=== PATIENT | male | born 1975 | race Caucasian/White ===

== ENCOUNTER 2018-11-13 08:08 | Observation (INO) ==
--- NOTE | 2018-11-13 09:22 | ED ---
HPI General Chief Complaint: Respiratory Symptoms Stated Complaint: SOB/Resp complaint Time Seen by Provider: 11/13/18 09:10 Source: patient Mode of arrival: ambulatory Limitations: no limitations History of Present Illness HPI Narrative: 43-year-old male complains of cough and congestion shortness of breath and fever. Patient states that he started having productive cough with shortness of breath about 4 weeks ago. Patient states that the symptom got worse since then. Patient started having fever for the past 2 days. Patient states that he has intermittent nausea vomiting with a cough. Patient has history of asthma. Patient is a smoker. Patient states that he has recent sick contacts. Complaint: Reports fever and cough Onset (ago): week(s) Duration: intermittent Severity: moderate Relieving factors: nothing Exacerbating factors: nothing Description of mucous: Reports yellow Able to tolerate fluids by mouth: Yes Context: Reports sick contacts Associated symptoms: Reports fever, cough, nausea and vomiting Treatments prior to arrival: Reports none Related Data Previous Rx's Medication Instructions Recorded albuterol sulfate 1 inh INHALATION Q4-6H PRN #8 g 08/13/18 Allergies Allergy/AdvReac Type Severity Reaction Status Date / Time No Known Allergies Allergy Verified 11/13/18 08:33 Review of Systems ROS: all other systems reviewed are negative [facility] Medical History Medical History Asthma (Acute) Detached retina, left (Acute) Surgical History Surgical History No pertinent past surgical history (Acute) Social History Social History Substance History: Past History Second Hand Smoke Exposure: Yes Smoking Status: Current every day smoker Tobacco Type: Cigars How Often Do You Have a Drink Containing Alcohol: Monthly or less Recent Travel in [facility] within the Last 8 Weeks: No Recent Out of Country Travel within the Last 8 Weeks: No Immunization History Tetanus Immunization: Unsure Exam Narrative Exam Narrative: GENERAL: Well-nourished, well-developed patient. SKIN: Focused skin assessment warm/dry. HEAD: Normocephalic. EYES: No scleral icterus. No injection or drainage. NECK: Supple, trachea midline. No JVD or lymphadenopathy. CARDIOVASCULAR: Regular rate and rhythm without murmurs, gallops, or rubs. RESPIRATORY: Breath sounds equal bilaterally. No accessory muscle use. Patient has moderate expiratory wheezes bilaterally. No rhonchi. GASTROINTESTINAL: Abdomen soft, non-tender, nondistended. MUSCULOSKELETAL: No cyanosis, or edema. BACK: Nontender without obvious deformity. No CVA tenderness. Neurologic exam normal. Course Initial Documented Vital Signs Temperature 97.9 F 11/13/18 08:13 Pulse Rate 99 H 11/13/18 08:13 Respiratory Rate 18 11/13/18 08:13 Blood Pressure 148/71 H 11/13/18 08:13 Pulse Oximetry 90 L 11/13/18 08:13 Last Documented Vital Signs Temperature 97.9 F 11/13/18 08:13 Pulse Rate 90 11/13/18 10:46 Respiratory Rate 20 11/13/18 10:46 Blood Pressure 119/59 L 11/13/18 10:42 Pulse Oximetry 93 L 11/13/18 10:42 Medical Decision Making MDM Narrative Medical decision making narrative: 43-year-old male with coughing shortness of breath. History of asthma. Albuterol with Atrovent unit dose treatment x3. Decadron 8 mg IM. Rocephin 1 g IV. Zithromax 500 mg p.o. Medical Screen Exam Complete: Yes Emergency Medical Condition: Yes Differential Diagnosis Differential Diagnosis: Differential diagnosis including acute exacerbation of asthma, bronchitis, pneumonia. Imaging Data Attestation: I personally reviewed and interpreted this imaging study as follows : Radiologist's impression: Chest X-Ray 11/13/18 09:14 CONCLUSION: No acute cardiopulmonary disease. Discharge Plan Discharge Disposition Patient Disposition: ED Admit(ED Internal Use Only) Discharge Order Discharge Orders: ED Use Only Admit Order (Routine); Ordered 11/13/18 Ordered By: Suleiman Gold Discharge Details Diagnosis: Acute asthma exacerbation Physicians Team ED Provider: Suleiman Gold Primary Care Provider: Primary Care GilsoniGeorgette Rxs /Orders / Referrals /Forms Prescriptions: No Action albuterol sulfate 90 mcg/actuation HFA aerosol inhaler 1 inh INHALATION Q4-6H PRN (Reason: shortness of breath or wheezing) Qty: 8 RF: 0 Status ED Status: With Doctor
--- NOTE | 2018-11-13 09:45 | XR ---
EXAM DATE: 11/13/2018 9:42 AM EST AGE/SEX: 43 years / Male INDICATIONS: Short of breath. CLINICAL DATA: This is the patient's initial encounter. Patient reports that signs and symptoms have been present for 1 day and indicates a pain score of 0/10. MEDICAL/SURGICAL HISTORY: None. None. COMPARISON: [facility] [place]ST 2V PA&LAT, 08/13/2018. . FINDINGS: A single AP view of the chest demonstrates the lungs to be symmetrically aerated without evidence of mass, infiltrate or effusion. The cardiomediastinal contours are unremarkable. Osseous structures a re intact. There are multiple overlying electrocardiogram leads. There is a calcified left axillary l ymph node again noted. There is a small calcified granuloma again noted in the left upper lobe. CONCLUSION: No acute cardiopulmonary disease. Electronically signed by: Jeff Rogers MD Board Certified Radiologist 11/13/2018 9:44 AM EST
[2018-11-13] MEDS ORDERED: Azithromycin 250 MG Tablet PO ONE (10:30)
--- NOTE | 2018-11-13 10:59 | P.HPFP ---
History of Present Illness Primary Care Physician: No Primary Care Physician <Jasiel Churchill 11/15/18 10:15> No Primary Care Physician <Patt Quesada 11/13/18 10:58> Chief Complaint: Shortness of breath <Patt Quesada 11/13/18 10:58> History of Present Illness: 43-year-old who is a current smoker with a history of asthma who reports that he has been sick with a cough, cold and runny nose for about 1 month. He lives in the [facility] and a lot of the residents have been sick as well. The patient reports that he decided to come to the ED because his shortness of breath was worsening over the last 3 days. He has only used cough drops and has not had any other medication. He used to have an albuterol inhaler but has not used it for 2 weeks. He reports a fever at home the last 2 nights, night sweats, chills, nausea. His cough is productive of white sputum. He has never been hospitalized for asthma. Past medical history: asthma detached retina in left eye from kickboxing Past surgical history: none Allergies: NKDA Medications: albuterol inhaler Family history: mother: diabetes, heart disease, COPD Social history: Smoking history since 8 years old. He smokes about 10 cigars/day. 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 Previously smoked methamphetamine and weed Lives in [facility] PCP: none <Patt Quesada 11/13/18 20:23> - Diagnosis (1) Acute asthma exacerbation (2) DVT prophylaxis (3) Nutrition, metabolism, and development symptoms <Jasiel Churchill 11/15/18 10:15> (1) Acute asthma exacerbation (2) DVT prophylaxis (3) Nutrition, metabolism, and development symptoms <Patt Quesada 11/13/18 20:07> Review of Systems Constitutional: Reports chills, Reports fever(s), Reports headache(s), Reports night sweats <Patt Quesada 11/13/18 11:11> Eyes: Denies change in vision <Patt Quesada 11/13/18 11:11> Ears, Nose, Mouth, and Throat: Reports nasal congestion, Reports nasal discharge , Denies ear pain <Patt Quesada 11/13/18 11:11> Cardiovascular: Reports chest pain (with cough) <Patt Quesada 11:11> Respiratory: Reports chest congestion, Reports cough, Reports pain on inspiration, Reports pain with cough, Reports shortness of breath, Denies coughing up blood <Patt Quesada 11/13/18 11:11> Gastrointestinal: Denies black, tarry stools, Denies bright, red blood in stools , Denies change in bowel habits <Patt Quesada 11/13/18 20:23> Genitourinary: Denies blood in urine, Denies painful urination <Patt Quesada 11/13/18 11:11> Musculoskeletal: Denies muscle weakness <Patt Quesada 11/13/18 11:11 > Skin/Breast: Denies rash <Patt Quesada 11/13/18 11:11> Neurologic: Reports dizziness (with coughing), Denies fainting <Patt Quesada 11/13/18 11:11> Psychiatric: Denies depression <Patt Quesada 11/13/18 11:11> Endocrine: Reports rapid, pounding, or irregular heartbeat (2-3 weeks ago but not recently) <Mary TayPatt Kwon 11/13/18 11:11> Hematologic/Lymphatic: Denies easy bleeding, Denies easy bruising <Patt Quesada 11/13/18 11:11> PMFSH - History History Provided By: Patient <Patt Quesada 11/13/18 10:58> - Medical / Surgical Hx Neg / Unobtainable Surgical History: No Previous Surgery <Patt Quesada 11/13/18 11:11> - Medical History Medical History: Medical History (Last Reviewed 11/13/18 @ 09:21 by Suleiman Gold MD) Asthma Detached retina, left <Jasiel Churchill - 11/15/18 10:15> Medical History (Last Reviewed 11/13/18 @ 09:21 by Suleiman Gold MD) Asthma Detached retina, left <Patt Quesada - 11/13/18 10:58> - Surgical History Surgical History: Surgical History (Last Reviewed 11/13/18 @ 09:21 by Suleiman Gold MD) No pertinent past surgical history <Jasiel Churchill R - 11/15/18 10:15> Surgical History (Last Reviewed 11/13/18 @ 09:21 by Suleiman Gold MD) No pertinent past surgical history <Patt Quesada 11/13/18 10:58> - Social History I have reviewed the patient's Social History: Yes <Patt Quesada 11:11> - Tobacco History Second Hand Smoke Exposure: Yes <Patt Quesada 11/13/18 10:58> Tobacco Use In Past 30 Days: Yes <Patt Quesada - 11/13/18 10:58> Smoking Status: Current every day smoker <Patt Quesada 11/13/18 10: 58> Tobacco Type: Cigars <Patt Quesada 11/13/18 10:58> - Alcohol History How Often Do You Have a Drink Containing Alcohol: Monthly or less <Patt Quesada - 11/13/18 10:58> - Substance Use History Substance History: Past History <Patt Quesada 11/13/18 10:58> - Substance Use Type 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 <Patt Quesada 11/13/18 20:23> Route Used: Inhalation <Lorivre Patt Tay 11/13/18 20:23> Frequency: 1/2-1g everyday for 6 months <Patt Quesada 11/13/18 20:23 > Last Used: 4 months ago <Patt Quesada - 11/13/18 20:23> Reason for Use: Hurt Myself <Patt Quesada 11/13/18 20:23> Comment: pt states " I did it to hurt/kill myself" <Patt Quesada - 20:23> Marijuana Status: Early Remission <Patt Quesada 11/13/18 20:23> Route Used: Inhalation <Patt Quesada 11/13/18 20:23> Frequency: 1oz/day <Patt Quesada 11/13/18 20:23> Last Used: 4 months ago <Patt Quesada 11/13/18 20:23> Reason for Use: Calm Down, Feels Good, Get High, Sleep, Socialization < Patt Quesada 11/13/18 20:23> - Travel History Recent Travel in the [facility] Within the Last 8 Weeks: No <Patt Quesada 11/13/18 10:58> Recent Travel Out of the Country Within the Last 8 Weeks: No <Patt Quesada 11/13/18 10:58> - Immunization History Tetanus Immunization: Unsure <Patt Quesada 11/13/18 10:58> Medications and Allergies Allergies Allergy/AdvReac Type Severity Reaction Status Date / Time No Known Allergies Allergy Verified 11/13/18 08:33 <Jasiel Churchill - 11/15/18 10:15> Active Medications: Active Medications Acetaminophen (Tylenol) 650 mg PO Q6H PRN PRN Reason: Temp > 100.4 and pain Albuterol (Albuterol Neb (Prn)) 2.5 mg NEB Q2HR NEB PRN PRN Reason: SHORTNESS OF BREATH Albuterol (Duoneb Neb (Segun)) 1 ampul NEB Q4HR NEB SEGUN Last Admin: 11/15/18 08:51 Dose: 1 ampul Azithromycin (Zithromax) 250 mg PO DAILY SEGUN Last Admin: 11/15/18 08:32 Dose: 250 mg Fluticasone Propionate (Flovent Hfa 110 Mcg Inh) 1 puff INH BID [facility] Last Admin: 11/15/18 08:34 Dose: 1 puff Ceftriaxone Sodium 1,000 mg/ (Sodium Chloride) 100 mls @ 200 mls/hr IV.SIG Q24H [facility] Last Infusion: 11/14/18 11:11 Dose: Infused Ibuprofen (Motrin) 600 mg PO Q6H PRN PRN Reason: PAIN 1-10 AND/OR FEVER >101F Menthol ([place]) 1 lozenge BUCCAL Q2HR PRN PRN Reason: COUGH AND/OR COLD SYMPTOMS Last Admin: 11/15/18 07:56 Dose: 1 lozenge Prednisone (Deltasone) 40 mg PO DAILY [facility] Last Admin: 11/15/18 08:32 Dose: 40 mg Sodium Chloride (Ns Flush) 2 ml IV.FLUSH BID [facility] Last Admin: 11/15/18 08:34 Dose: 2 ml Sodium Chloride (Ns Flush) 2 ml IV.FLUSH PRN PRN PRN Reason: FLUSH AFTER USING IV ACCESS <Jasiel Churchill - 11/15/18 10:15> Active Medications Ceftriaxone Sodium 1,000 mg/ (Sodium Chloride) 100 mls @ 200 mls/hr IV.SIG ONCE ONE Stop: 11/13/18 10:59 Last Admin: 11/13/18 10:43 Dose: 200 mls/hr <Patt Quesada - 11/13/18 10:58> Exam Vital signs: Vital Signs 11/14/18 12:00 11/14/18 12:13 11/14/18 16:00 Temperature 97.4 F L 98.1 F Pulse Rate 86 112 H 85 Respiratory Rate 18 19 18 Blood Pressure 123/60 126/62 Pulse Oximetry 94 L 93 L 11/14/18 16:42 11/14/18 20:00 11/14/18 20:56 Temperature 98.2 F Pulse Rate 83 77 90 Respiratory Rate 18 20 16 Blood Pressure 133/61 Pulse Oximetry 94 L 11/14/18 21:15 11/15/18 00:00 11/15/18 00:07 Temperature 97.7 F Pulse Rate 89 74 Respiratory Rate 24 16 Blood Pressure 130/77 Pulse Oximetry 94 L 94 L 11/15/18 03:13 11/15/18 07:32 11/15/18 08:42 Temperature 97.5 F L Pulse Rate 65 93 H Respiratory Rate 16 Blood Pressure 124/69 Pulse Oximetry 92 L 92 L 11/15/18 08:53 Temperature Pulse Rate 96 H Respiratory Rate 16 Blood Pressure Pulse Oximetry Intake & Output 11/14/18 11/15/18 11/15/18 18:59 06:59 18:59 Intake Total 2099 Balance 2099 Weight 92.3 kg Intake: IV 100 / 100 Rocephin Inj 1,000 MG In NS Inj 100 / 100 100 ML @ 200 mls/hr IV.SIG Q24H SEGUN Rx#:[id number] Oral 1999 Other: # Voids 4 10 <Jasiel Churchill R - 11/15/18 10:15> Vital Signs 11/13/18 08:13 11/13/18 08:37 11/13/18 09:25 Temperature 97.9 F Pulse Rate 99 H 96 H 92 H Respiratory Rate 18 21 22 Blood Pressure 148/71 H 123/57 L Pulse Oximetry 90 L 92 L 11/13/18 10:42 11/13/18 10:46 Temperature Pulse Rate 90 90 Respiratory Rate 14 20 Blood Pressure 119/59 L Pulse Oximetry 93 L Intake & Output 11/12/18 11/13/18 11/13/18 18:59 06:59 18:59 Weight 84.368 kg <Mary TayPatt A - 11/13/18 10:58> Narrative: GENERAL: male resting comfortably in hospital bed in no acute distress SKIN: Cool and dry. HEAD: Atraumatic. Normocephalic. EYES: Pupils equal round and reactive. Extraocular motions intact. No scleral icterus. No injection or drainage. ENT: Nose without bleeding, purulent drainage. Airway patent. NECK: Trachea midline. CARDIOVASCULAR: Regular rate and rhythm without murmurs, gallops, or rubs. RESPIRATORY: Diffuse expiratory and inspiratory wheezes bilaterally GASTROINTESTINAL: Abdomen soft, non-tender, without guarding. Positive bowel sounds, nondistended. MUSCULOSKELETAL: Extremities without clubbing, cyanosis, or edema. No joint tenderness or effusion noted. No calf tenderness. NEUROLOGICAL: Awake and alert. Normal speech. <Mary TayPatt A - 11/13/18 20:23> Results - Labs Result diagrams: 11/15/18 05:03 11/15/18 05:03 <YuriyJasiel younger - 11/15/18 10:15> Abnormal lab results 11/15/18 11/15/18 Range/Units 05:03 05:03 MPV 6.6 L (7.0-11.0) fL [place] % (Auto) 8.6 H (0.0-8.0) % Chloride 110 H (98-107) meq/L Calcium 8.1 L (8.5-10.1) mg/dL Short CBC 11/15/18 Range/Units 05:03 WBC 9.0 (4.0-11.0) th/mm3 Hgb 14.7 (13.0-17.0) gm/dL Hct 43.0 (39.0-51.0) % Plt Count 275 (150-450) th/mm3 BMP 11/15/18 05:03 Sodium 143 Potassium 3.8 Chloride 110 H Carbon Dioxide 26.8 BUN 9 Creatinine 0.76 Calcium 8.1 L <Jasiel Churchill - 11/15/18 10:15> - Imaging Impressions Chest X-Ray 11/13/18 09:14 CONCLUSION: No acute cardiopulmonary disease. <Mary TayPatt A - 11/13/18 10:58> Caprini VTE Risk Assessment Caprini VTE Risk Assessment: No/Low Risk (score <= 1) <Mary TayPatt A 11/13/18 20:23> Caprini Risk Assessment Model: Point Value = 1 Point Value = 2 Point Value = 3 Point Value = 5 Age 41-60 Minor surgery BMI > 25 kg/m2 Swollen legs Varicose veins or History of unexplained or recurrent spontaneous Oral contraceptives or hormone replacement Sepsis (< 1 month) Serious lung disease, including pneumonia (< 1 month) Abnormal pulmonary function Acute myocardial infarction Congestive heart failure (< 1 month) History of inflammatory bowel disease Medical patient at bed rest Age 61-74 Arthroscopic surgery Major open surgery (> 45 min) Laparoscopic surgery (> 45 min) Malignancy Confined to bed (> 72 hours) Immobilizing plaster cast Central venous access Age >= 75 History of VTE Family history of VTE Factor V Leiden Prothrombin 30347T Lupus anticoagulant Anticardiolipin antibodies Elevated serum homocysteine Heparin-induced thrombocytopenia Other congenital or acquired thrombophilia Stroke (< 1 month) Elective arthroplasty Hip, pelvis, or leg fracture Acute spinal cord injury (< 1 month) <Jasiel Churchill - 11/15/18 10:15> Point Value = 1 Point Value = 2 Point Value = 3 Point Value = 5 Age 41-60 Minor surgery BMI > 25 kg/m2 Swollen legs Varicose veins or History of unexplained or recurrent spontaneous Oral contraceptives or hormone replacement Sepsis (< 1 month) Serious lung disease, including pneumonia (< 1 month) Abnormal pulmonary function Acute myocardial infarction Congestive heart failure (< 1 month) History of inflammatory bowel disease Medical patient at bed rest Age 61-74 Arthroscopic surgery Major open surgery (> 45 min) Laparoscopic surgery (> 45 min) Malignancy Confined to bed (> 72 hours) Immobilizing plaster cast Central venous access Age >= 75 History of VTE Family history of VTE Factor V Leiden Prothrombin 43102M Lupus anticoagulant Anticardiolipin antibodies Elevated serum homocysteine Heparin-induced thrombocytopenia Other congenital or acquired thrombophilia Stroke (< 1 month) Elective arthroplasty Hip, pelvis, or leg fracture Acute spinal cord injury (< 1 month) <Patt Quesada - 11/13/18 10:58> Prophylaxis Regimen: Total Risk Factor Score Risk Level Prophylaxis Regimen 0-1 Low Early ambulation 2 Moderate Order ONE of the following: *Sequential Compression Device (SCD) *Heparin 5000 units SQ BID 3-4 Higher Order ONE of the following medications: *Heparin 5000 units SQ TID *Enoxaparin/Lovenox 40 mg SQ daily (WT < 150 kg, CrCl > 30 mL/min) *Enoxaparin/Lovenox 30 mg SQ daily (WT < 150 kg, CrCl > 10-29 mL/min) *Enoxaparin/Lovenox 30 mg SQ BID (WT < 150 kg, CrCl > 30 mL/min) AND/OR *Sequential Compression Device (SCD) 5 or more Highest Order ONE of the following medications: *Heparin 5000 units SQ TID (Preferred with Epidurals) *Enoxaparin/Lovenox 40 mg SQ daily (WT < 150 kg, CrCl > 30 mL/min) *Enoxaparin/Lovenox 30 mg SQ daily (WT < 150 kg, CrCl > 10-29 mL/min) *Enoxaparin/Lovenox 30 mg SQ BID (WT < 150 kg, CrCl > 30 mL/min) AND *Sequential Compression Device (SCD) <Jasiel Churchill R - 11/15/18 10:15> Total Risk Factor Score Risk Level Prophylaxis Regimen 0-1 Low Early ambulation 2 Moderate Order ONE of the following: *Sequential Compression Device (SCD) *Heparin 5000 units SQ BID 3-4 Higher Order ONE of the following medications: *Heparin 5000 units SQ TID *Enoxaparin/Lovenox 40 mg SQ daily (WT < 150 kg, CrCl > 30 mL/min) *Enoxaparin/Lovenox 30 mg SQ daily (WT < 150 kg, CrCl > 10-29 mL/min) *Enoxaparin/Lovenox 30 mg SQ BID (WT < 150 kg, CrCl > 30 mL/min) AND/OR *Sequential Compression Device (SCD) 5 or more Highest Order ONE of the following medications: *Heparin 5000 units SQ TID (Preferred with Epidurals) *Enoxaparin/Lovenox 40 mg SQ daily (WT < 150 kg, CrCl > 30 mL/min) *Enoxaparin/Lovenox 30 mg SQ daily (WT < 150 kg, CrCl > 10-29 mL/min) *Enoxaparin/Lovenox 30 mg SQ BID (WT < 150 kg, CrCl > 30 mL/min) AND *Sequential Compression Device (SCD) <Patt Quesada A - 11/13/18 10:58> Assessment and Plan - Assessment (1) Acute asthma exacerbation Code(s): J45.901 - Unspecified asthma with (acute) exacerbation Status: Acute (2) DVT prophylaxis Status: Acute (3) Nutrition, metabolism, and development symptoms Code(s): R63.8 - Other symptoms and signs concerning food and fluid intake Status: Acute <Jasiel Churchill R - 11/15/18 10:15> (1) Acute asthma exacerbation Code(s): J45.901 - Unspecified asthma with (acute) exacerbation Status: Acute Plan: 43-year-old male with an acute exacerbation of asthma who was requiring oxygen to keep oxygen saturations greater than 92%. He was afebrile. He had a normal white count. CBC and CMP were grossly within normal limits. Chest x-ray with no acute cardiopulmonary disease. In the ED, the patient received 1 g ceftriaxone, 500 mg azithromycin p.o., 2 DuoNeb treatments, and 8 mg IM Decadron. -Titrate oxygen to keep sats greater than 92% -DuoNeb treatments every 4 hours -Albuterol treatments every 2 hours as needed -Zithromax 250 mg p.o. daily -Prednisone 40 mg daily (2) DVT prophylaxis Status: Acute Plan: Bilateral SCDs (3) Nutrition, metabolism, and development symptoms Code(s): R63.8 - Other symptoms and signs concerning food and fluid intake Status: Acute Plan: Fluids: Patient tolerating p.o. intake Electrolytes: Monitor and replete as needed Nutrition: Regular diet <Patt Quesada - 11/13/18 20:07> - Attending Attestation THIS CASE WAS DISCUSSED WITH THE RESIDENT PHYSICIAN. I HAVE REVIEWED THE RECORD AND AGREE WITH THE ABOVE NOTE AND PLAN OF CARE WAS DISCUSSED. I HAVE AUTHORIZED THE ORDER FOR PLACEMENT IN OUT-PATIENT OBSERVATION STATUS. Jasiel Churchill MD <Jasiel Churchill - 11/15/18 10:15> <Patt Quesada - Last Filed: 11/13/18 20:07> (1) Acute asthma exacerbation Qualifiers: Asthma severity: severe Asthma persistence: persistent Qualified Code(s): J45.51 - Severe persistent asthma with (acute) exacerbation <Jasiel Churchill - Last Filed: 11/15/18 10:15> (1) Acute asthma exacerbation Qualifiers: Asthma severity: severe Asthma persistence: persistent Qualified Code(s): J45.51 - Severe persistent asthma with (acute) exacerbation <Patt Quesada A - Last Filed: 11/13/18 20:07> (1) Acute asthma exacerbation Qualifiers: Asthma severity: severe Asthma persistence: persistent Qualified Code(s): J45.51 - Severe persistent asthma with (acute) exacerbation <Jasiel Churchill R - Last Filed: 11/15/18 10:15> (1) Acute asthma exacerbation Qualifiers: Asthma severity: severe Asthma persistence: persistent Qualified Code(s): J45.51 - Severe persistent asthma with (acute) exacerbation
[2018-11-13 11:08] LABS: Baso % (Auto) 0.6 % (0.0-2.0); Eos # (Auto) 0.2 th/mm3 (0.0-0.4); Eos % (Auto) 4.1 % (0.0-4.0); Hematocrit 46.2 % (39.0-51.0); Hemoglobin 16.1 gm/dL (13.0-17.0); Lymph # (Auto) 1.5 th/mm3 (1.0-4.8); Lymph % (Auto) 33.3 % (9.0-44.0); Mean Corpuscular HGB Conc 34.9 % (32.0-36.0); Mean Corpuscular Hemoglobin 30.5 pg (27.0-34.0); Mean Corpuscular Volume 87.5 fL (80.0-100.0); Mean Platelet Volume 6.9 fL (7.0-11.0); Mono # (Auto) 0.4 th/mm3 (0.0-0.9); Mono % (Auto) 9.7 % (0.0-8.0); Neut # (Auto) 2.4 th/mm3 (1.8-7.7); Neut % (Auto) 52.3 % (16.0-70.0); Platelet Count 276 th/mm3 (150-450); Red Blood Count 5.28 mil/mm3 (4.50-5.90); Red Cell Distribution Width 13.3 % (11.6-17.2); White Blood Count 4.6 th/mm3 (4.0-11.0)
[2018-11-13 11:23] LABS: Albumin 3.6 g/dL (3.4-5.0); Anion Gap 5 meq/L (5-15); Aspartate Aminotransferase 23 U/L (15-37); Blood Urea Nitrogen 16 mg/dL (7-18); Calcium 8.6 mg/dL (8.5-10.1); Carbon Dioxide 28.9 meq/L (21.0-32.0); Chloride 108 meq/L (98-107); Glomerular Filtration Rate Greater Than 89 mL/min (>89); Glucose,Random 109 mg/dL (74-106); Potassium 4.3 meq/L (3.5-5.1); Sodium 142 meq/L (136-145)
[2018-11-13] MEDS ORDERED: Acetaminophen 325 MG Tablet PO PRN (11:23)
[2018-11-13 11:27] LABS: Alanine Aminotransferase 27 U/L (12-78); Alkaline Phosphatase 67 U/L (45-117)
[2018-11-14 05:52] LABS: Baso % (Auto) 0.2 % (0.0-2.0); Eos % (Auto) 0.1 % (0.0-4.0); Hematocrit 42.4 % (39.0-51.0); Hemoglobin 14.8 gm/dL (13.0-17.0); Lymph # (Auto) 1.6 th/mm3 (1.0-4.8); Lymph % (Auto) 14.7 % (9.0-44.0); Mean Corpuscular Hemoglobin 30.5 pg (27.0-34.0); Mean Platelet Volume 6.7 fL (7.0-11.0); Mono # (Auto) 1.1 th/mm3 (0.0-0.9); Platelet Count 279 th/mm3 (150-450); Red Blood Count 4.87 mil/mm3 (4.50-5.90); Red Cell Distribution Width 13.4 % (11.6-17.2); White Blood Count 10.7 th/mm3 (4.0-11.0)
[2018-11-14 06:24] LABS: Aspartate Aminotransferase 20 U/L (15-37); Chloride 108 meq/L (98-107); Glomerular Filtration Rate Greater Than 89 mL/min (>89); Glucose,Random 125 mg/dL (74-106); Potassium 3.7 meq/L (3.5-5.1); Sodium 142 meq/L (136-145)
[2018-11-14 06:27] LABS: Alanine Aminotransferase 30 U/L (12-78); Albumin 3.3 g/dL (3.4-5.0); Alkaline Phosphatase 68 U/L (45-117); Anion Gap 10 meq/L (5-15); Blood Urea Nitrogen 14 mg/dL (7-18); Calcium 8.2 mg/dL (8.5-10.1); Carbon Dioxide 23.8 meq/L (21.0-32.0); Total Protein 6.7 g/dL (6.4-8.2)
[2018-11-14 07:42] LABS: Albumin 3.3 g/dL (3.4-5.0); Calcium 8.2 mg/dL (8.5-10.1)
[2018-11-14 07:44] LABS: Calcium-Albumin Corrected 8.8 mg/dL (8.5-10.1)
[2018-11-14] MEDS: Azithromycin 250 MG Tablet PO SCH (08:34)
[2018-11-14] MEDS: predniSONE 20 MG Tablet PO SCH (08:34)
[2018-11-14] MEDS ORDERED: Ibuprofen 600 MG Tablet PO PRN (11:25)
[2018-11-14] MEDS ORDERED: Acetaminophen 325 MG Tablet PO PRN (11:26)
--- NOTE | 2018-11-14 12:34 | P.PNFP ---
Subjective Interval history: Patient was seen and examined this morning. He reports he still has some shortness of breath. When asked about refusing nebulizer treatments overnight, he endorses he wanted to rest. He reports congestion since starting oxygen via nasal cannula. Denies chest pain but does endorse pain in his left side last night, which felt like muscle cramps. Additional history: has been on Advair in the past but not currently. Has been using albuterol inhaler at least twice daily recently. <Brennan ThomasSabra L - 11/14/18 12:33> Results - Labs Result diagrams: 11/15/18 05:03 11/15/18 05:03 <Jasiel Churchill R - 11/15/18 13:32> Abnormal lab results 11/15/18 11/15/18 Range/Units 05:03 05:03 MPV 6.6 L (7.0-11.0) fL [place] % (Auto) 8.6 H (0.0-8.0) % Chloride 110 H (98-107) meq/L Calcium 8.1 L (8.5-10.1) mg/dL Short CBC 11/15/18 Range/Units 05:03 WBC 9.0 (4.0-11.0) th/mm3 Hgb 14.7 (13.0-17.0) gm/dL Hct 43.0 (39.0-51.0) % Plt Count 275 (150-450) th/mm3 [facility] 11/15/18 05:03 Sodium 143 Potassium 3.8 Chloride 110 H Carbon Dioxide 26.8 BUN 9 Creatinine 0.76 Calcium 8.1 L <Jasiel Churchill R - 11/15/18 13:32> Abnormal lab results 11/14/18 11/14/18 11/14/18 Range/Units 03:53 03:53 03:53 MPV 6.7 L (7.0-11.0) fL [place] % (Auto) 75.0 H (16.0-70.0) % [place] % (Auto) 10.0 H (0.0-8.0) % Neut # (Auto) 8.0 H (1.8-7.7) th/mm3 [place] # (Auto) 1.1 H (0.0-0.9) th/mm3 Chloride 108 H (98-107) meq/L Random Glucose 125 H (74-106) mg/dL Calcium 8.2 L 8.2 L (8.5-10.1) mg/dL Albumin 3.3 L 3.3 L (3.4-5.0) g/dL Short CBC 11/14/18 Range/Units 03:53 WBC 10.7 D (4.0-11.0) th/mm3 Hgb 14.8 (13.0-17.0) gm/dL Hct 42.4 (39.0-51.0) % Plt Count 279 (150-450) th/mm3 BMP 11/14/18 11/14/18 03:53 03:53 Sodium 142 Potassium 3.7 Chloride 108 H Carbon Dioxide 23.8 BUN 14 Creatinine 0.77 Calcium 8.2 L 8.2 L Liver Function 11/14/18 11/14/18 Range/Units 03:53 03:53 Total Bilirubin 0.3 (0.2-1.0) mg/dL AST 20 (15-37) U/L ALT 30 (12-78) U/L Alkaline Phosphatase 68 (45-117) U/L Albumin 3.3 L 3.3 L (3.4-5.0) g/dL <Brennan R3Sabra L - 11/14/18 12:33> Physical Exam Vital signs: Vital Signs 11/14/18 16:00 11/14/18 16:42 11/14/18 20:00 Temperature 98.1 F 98.2 F Pulse Rate 85 83 77 Respiratory Rate 18 18 20 Blood Pressure 126/62 133/61 Pulse Oximetry 93 L 94 L 11/14/18 20:56 11/14/18 21:15 11/15/18 00:00 Temperature 97.7 F Pulse Rate 90 89 Respiratory Rate 16 24 Blood Pressure 130/77 Pulse Oximetry 94 L 94 L 11/15/18 00:07 11/15/18 03:13 11/15/18 07:32 Temperature 97.5 F L Pulse Rate 74 65 93 H Respiratory Rate 16 16 Blood Pressure 124/69 Pulse Oximetry 92 L 11/15/18 08:42 11/15/18 08:53 11/15/18 11:43 Temperature Pulse Rate 96 H 91 H Respiratory Rate 16 19 Blood Pressure Pulse Oximetry 92 L 93 L Intake & Output 11/14/18 11/15/1819 18:59 06:59 18:59 Intake Total 2099 Balance 2099 Weight 92.3 kg Intake: IV 100 / 100 Rocephin Inj 1,000 MG In NS Inj 100 / 100 100 ML @ 200 mls/hr IV.SIG Q24H [facility] Rx#:[id number] Oral 1999 Other: # Voids 4 10 Date of Last Bowel Movement 11/13/18 <Jasiel Churchill R - 11/15/18 13:32> Vital Signs 11/13/18 13:24 11/13/18 16:00 11/13/18 16:17 Temperature 98.2 F 98.0 F Pulse Rate 91 H 96 H 92 H Respiratory Rate 18 17 18 Blood Pressure 114/73 119/73 Pulse Oximetry 91 L 91 L 11/13/18 20:00 11/13/18 20:37 11/14/18 00:00 Temperature 98.1 F 97.7 F Pulse Rate 90 70 93 H Respiratory Rate 24 18 18 Blood Pressure 136/63 134/70 Pulse Oximetry 94 L 92 L 94 L 11/14/18 00:30 11/14/18 07:15 11/14/18 09:19 Temperature 98.0 F Pulse Rate 83 90 76 Respiratory Rate 17 16 22 Blood Pressure 125/64 Pulse Oximetry 96 11/14/18 12:00 11/14/18 12:13 Temperature 97.4 F L Pulse Rate 86 112 H Respiratory Rate 18 19 Blood Pressure 123/60 Pulse Oximetry 94 L Intake & Output 11/13/18 11/14/18 11/14/18 18:59 06:59 18:59 Intake Total 1100 / 1100 720 / 720 100 / 100 Balance 1100 / 1100 720 / 720 100 / 100 Weight 84.368 kg 91.2 kg Intake: IV 100 / 100 100 / 100 Rocephin Inj 1,000 MG In NS Inj 100 / 100 100 / 100 100 ML @ 200 mls/hr IV.SIG Q24H [facility] Rx#:[id number] Oral 1000 / 1000 720 / 720 Other: # Voids 1 2 Weight On Admission 84.368 kg <Brennan ThomasSabra L - 11/14/18 12:33> Narrative: GENERAL: male resting comfortably in hospital bed in no acute distress. Face is red and sounds congested. SKIN: Cool and dry. HEAD: Atraumatic. Normocephalic. EYES: Pupils equal round and reactive. Extraocular motions intact. No scleral icterus. No injection or drainage. ENT: Nose without bleeding, purulent drainage. Airway patent. NECK: Trachea midline. CARDIOVASCULAR: Regular rate and rhythm without murmurs, gallops, or rubs. RESPIRATORY: Diffuse expiratory and inspiratory wheezes bilaterally, same as prior exam GASTROINTESTINAL: Abdomen soft, non-tender, without guarding. Positive bowel sounds, nondistended. MUSCULOSKELETAL: Extremities without clubbing, cyanosis, or edema. No joint tenderness or effusion noted. No calf tenderness. NEUROLOGICAL: Awake and alert. Normal speech. <Brennan ThomasSabra L - 11/14/18 12:33> Assessment and Plan - Assessment (1) Acute asthma exacerbation Code(s): J45.901 - Unspecified asthma with (acute) exacerbation Status: Acute (2) Nutrition, metabolism, and development symptoms Code(s): R63.8 - Other symptoms and signs concerning food and fluid intake Status: Acute (3) DVT prophylaxis Status: Acute <Jasiel Churchill R - 11/15/18 13:32> (1) Acute asthma exacerbation Code(s): J45.901 - Unspecified asthma with (acute) exacerbation Status: Acute Plan: 43-year-old male with an acute exacerbation of asthma who was requiring oxygen to keep oxygen saturations greater than 92%. He was afebrile. He had a normal white count. CBC and CMP were grossly within normal limits. Chest x-ray with no acute cardiopulmonary disease. In the ED, the patient received 1g ceftriaxone, 500 mg azithromycin p.o., 2 DuoNeb treatments, and 8 mg IM Decadron. Flu test negative on admission. Today, no significant improvement in his symptoms. NC rate 2-2.5 L/min. Plan: -Titrate oxygen to keep sats greater than 92% -DuoNeb treatments every 4 hours -Albuterol treatments every 2 hours as needed -Zithromax 250 mg p.o. daily to continue, Rocephin 1g IV daily to continue ( start date 11/16) -Prednisone 40 mg daily initiated 11/14 @ 9am -Start Advair 110mcg inhaler BID -Start cough drops PRN -For likely URI-related muscle aches will alternate acetaminophen and ibuprofen PRN (2) DVT prophylaxis Status: Acute Plan: Patient is ambulatory, chronic smoker. Counseled on smoking cessation. Patient is at [facility], history of alcoholism. Bilateral SCDs on admission. (3) Nutrition, metabolism, and development symptoms Code(s): R63.8 - Other symptoms and signs concerning food and fluid intake Status: Acute Plan: Fluids: Patient tolerating p.o. intake Electrolytes: Monitor and replete as needed Nutrition: Regular diet <Sabra Navas - 11/14/18 12:22> - Assessment and Plan Discussed Condition With: Seen and discussed with Radha Paiz, and Mary <Sabra Navas - 11/14/18 12:33> Discharge Planning: Pending clinical improvement and decreased O2 needs. Expect if improving on oxygen requirements that patient will be ready for discharge in 1-2 days. On discharge will continue azithromycin, Advair, PRN albuterol, prednisone and symptom therapies. Needs f/u with a PCP, case mgmt consulted <Sabra Navas - 11/14/18 12:33> - Attending Attestation This patient was seen and evaluated with the resident physician. I agree with the plan of care as discussed with me and documented in the resident note. Jasiel Churchill MD <Jasiel Churchill - 11/15/18 13:32> <Sabra Navas - Last Filed: 11/14/18 12:22> (1) Acute asthma exacerbation Qualifiers: Asthma severity: severe Asthma persistence: persistent Qualified Code(s): J45.51 - Severe persistent asthma with (acute) exacerbation <Oslos,Jasiel R - Last Filed: 11/15/18 13:32> (1) Acute asthma exacerbation Qualifiers: Asthma severity: severe Asthma persistence: persistent Qualified Code(s): J45.51 - Severe persistent asthma with (acute) exacerbation <Sabra Navas L - Last Filed: 11/14/18 12:22> (1) Acute asthma exacerbation Qualifiers: Asthma severity: severe Asthma persistence: persistent Qualified Code(s): J45.51 - Severe persistent asthma with (acute) exacerbation <Jasiel Churchill R - Last Filed: 11/15/18 13:32> (1) Acute asthma exacerbation Qualifiers: Asthma severity: severe Asthma persistence: persistent Qualified Code(s): J45.51 - Severe persistent asthma with (acute) exacerbation
[2018-11-14] MEDS: Menthol 5.8 MG Lozenge BUCCAL PRN ×2 (14:42→21:12)
[2018-11-15 06:01] LABS: Baso % (Auto) 0.2 % (0.0-2.0); Eos # (Auto) 0.1 th/mm3 (0.0-0.4); Eos % (Auto) 1.1 % (0.0-4.0); Hemoglobin 14.7 gm/dL (13.0-17.0); Lymph # (Auto) 3.2 th/mm3 (1.0-4.8); Lymph % (Auto) 35.6 % (9.0-44.0); Mean Corpuscular HGB Conc 34.1 % (32.0-36.0); Mean Corpuscular Hemoglobin 29.6 pg (27.0-34.0); Mean Corpuscular Volume 86.9 fL (80.0-100.0); Mean Platelet Volume 6.6 fL (7.0-11.0); Mono # (Auto) 0.8 th/mm3 (0.0-0.9); Mono % (Auto) 8.6 % (0.0-8.0); Neut # (Auto) 4.9 th/mm3 (1.8-7.7); Neut % (Auto) 54.5 % (16.0-70.0); Platelet Count 275 th/mm3 (150-450); Red Blood Count 4.95 mil/mm3 (4.50-5.90); Red Cell Distribution Width 13.6 % (11.6-17.2)
[2018-11-15 06:25] LABS: Anion Gap 6 meq/L (5-15); Blood Urea Nitrogen 9 mg/dL (7-18); Calcium 8.1 mg/dL (8.5-10.1); Carbon Dioxide 26.8 meq/L (21.0-32.0); Chloride 110 meq/L (98-107); Glomerular Filtration Rate Greater Than 89 mL/min (>89); Glucose,Random 91 mg/dL (74-106); Potassium 3.8 meq/L (3.5-5.1); Sodium 143 meq/L (136-145)
[2018-11-15] MEDS: Menthol 5.8 MG Lozenge BUCCAL PRN (07:56)
[2018-11-15] MEDS: Azithromycin 250 MG Tablet PO SCH (08:32)
[2018-11-15] MEDS: predniSONE 20 MG Tablet PO SCH (08:32)
--- NOTE | 2018-11-15 08:49 | P.PNFP ---
Subjective Interval history: Patient seen and examined at bedside today. The patient has required 2 L of oxygen overnight to keep oxygen saturations at 94%. He had just returned to his bed from the bathroom. He was satting at 92% without nasal cannula O2. He reports that he is feeling much better but still short of breath. He denied full body cramping or aches today. He denied any fevers, chills, chest pain, abdominal pain, nausea, vomiting, lower extremity edema. <Patt Quesada - 11/15/18 11:06> Results - Labs Result diagrams: 11/15/18 05:03 11/15/18 05:03 <Jasiel Churchill R - 11/15/18 13:42> Abnormal lab results 11/15/18 11/15/18 Range/Units 05:03 05:03 MPV 6.6 L (7.0-11.0) fL [place] % (Auto) 8.6 H (0.0-8.0) % Chloride 110 H (98-107) meq/L Calcium 8.1 L (8.5-10.1) mg/dL Short CBC 11/15/18 Range/Units 05:03 WBC 9.0 (4.0-11.0) th/mm3 Hgb 14.7 (13.0-17.0) gm/dL Hct 43.0 (39.0-51.0) % Plt Count 275 (150-450) th/mm3 BMP 11/15/18 05:03 Sodium 143 Potassium 3.8 Chloride 110 H Carbon Dioxide 26.8 BUN 9 Creatinine 0.76 Calcium 8.1 L <Jasiel Churchill R - 11/15/18 13:42> Abnormal lab results 11/15/18 11/15/18 Range/Units 05:03 05:03 MPV 6.6 L (7.0-11.0) fL [place] % (Auto) 8.6 H (0.0-8.0) % Chloride 110 H (98-107) meq/L Calcium 8.1 L (8.5-10.1) mg/dL Short CBC 11/15/18 Range/Units 05:03 WBC 9.0 (4.0-11.0) th/mm3 Hgb 14.7 (13.0-17.0) gm/dL Hct 43.0 (39.0-51.0) % Plt Count 275 (150-450) th/mm3 BMP 11/15/18 05:03 Sodium 143 Potassium 3.8 Chloride 110 H Carbon Dioxide 26.8 BUN 9 Creatinine 0.76 Calcium 8.1 L <Patt Quesada A - 11/15/18 08:49> Physical Exam Vital signs: Vital Signs 11/14/18 16:00 11/14/18 16:42 11/14/18 20:00 Temperature 98.1 F 98.2 F Pulse Rate 85 83 77 Respiratory Rate 18 18 20 Blood Pressure 126/62 133/61 Pulse Oximetry 93 L 94 L 11/14/18 20:56 11/14/18 21:15 11/15/18 00:00 Temperature 97.7 F Pulse Rate 90 89 Respiratory Rate 16 24 Blood Pressure 130/77 Pulse Oximetry 94 L 94 L 11/15/18 00:07 11/15/18 03:13 11/15/18 07:32 Temperature 97.5 F L Pulse Rate 74 65 93 H Respiratory Rate 16 16 Blood Pressure 124/69 Pulse Oximetry 92 L 11/15/18 08:42 11/15/18 08:53 11/15/18 11:43 Temperature Pulse Rate 96 H 91 H Respiratory Rate 16 19 Blood Pressure Pulse Oximetry 92 L 93 L Intake & Output 11/14/18 11/15/18 11/15/18 18:59 06:59 18:59 Intake Total 2099 Balance 2099 Weight 92.3 kg Intake: IV 100 / 100 Rocephin Inj 1,000 MG In NS Inj 100 / 100 100 ML @ 200 mls/hr IV.SIG Q24H [facility] Rx#:[id number] Oral 1999 Other: # Voids 4 10 Date of Last Bowel Movement 11/13/18 <Jasiel Churchill R - 11/15/18 13:42> Vital Signs 11/14/18 09:19 11/14/18 12:00 11/14/18 12:13 Temperature 97.4 F L Pulse Rate 76 86 112 H Respiratory Rate 22 18 19 Blood Pressure 123/60 Pulse Oximetry 96 94 L 11/14/18 16:00 11/14/18 16:42 11/14/18 20:00 Temperature 98.1 F 98.2 F Pulse Rate 85 83 77 Respiratory Rate 18 18 20 Blood Pressure 126/62 133/61 Pulse Oximetry 93 L 94 L 11/14/18 20:56 11/14/18 21:15 11/15/18 00:00 Temperature 97.7 F Pulse Rate 90 89 Respiratory Rate 16 24 Blood Pressure 130/77 Pulse Oximetry 94 L 94 L 11/15/18 00:07 11/15/18 03:13 11/15/18 07:32 Temperature 97.5 F L Pulse Rate 74 65 93 H Respiratory Rate 16 16 Blood Pressure 124/69 Pulse Oximetry 92 L 11/15/18 08:42 Temperature Pulse Rate Respiratory Rate Blood Pressure Pulse Oximetry 92 L Intake & Output 11/14/18 11/15/18 11/15/18 18:59 06:59 18:59 Intake Total 2099 Balance 2099 Weight 92.3 kg Intake: IV 100 / 100 Rocephin Inj 1,000 MG In NS Inj 100 / 100 100 ML @ 200 mls/hr IV.SIG Q24H [facility] Rx#:[id number] Oral 1999 Other: # Voids 4 10 <Patt Quesada - 11/15/18 08:49> Narrative: GENERAL: male resting comfortably in hospital bed in no acute distress. Face is red. SKIN: Cool and dry. HEAD: Atraumatic. Normocephalic. EYES: Pupils equal round and reactive. Extraocular motions intact. No scleral icterus. No injection or drainage. ENT: Nose without bleeding, purulent drainage. Airway patent. NECK: Trachea midline. CARDIOVASCULAR: Regular rate and rhythm without murmurs, gallops, or rubs. RESPIRATORY: Improved but still with diffuse expiratory and inspiratory wheezes bilaterally GASTROINTESTINAL: Abdomen soft, non-tender, without guarding. Positive bowel sounds, nondistended. MUSCULOSKELETAL: Extremities without clubbing, cyanosis, or edema. No joint tenderness or effusion noted. No calf tenderness. NEUROLOGICAL: Awake and alert. Normal speech. <Patt Quesada - 11/15/18 11:06> Assessment and Plan - Assessment (1) Acute asthma exacerbation Code(s): J45.901 - Unspecified asthma with (acute) exacerbation Status: Acute (2) Nutrition, metabolism, and development symptoms Code(s): R63.8 - Other symptoms and signs concerning food and fluid intake Status: Acute (3) DVT prophylaxis Status: Acute <Jasiel Churchill Bere - 11/15/18 13:42> (1) Acute asthma exacerbation Code(s): J45.901 - Unspecified asthma with (acute) exacerbation Status: Acute Plan: 43-year-old male with an acute exacerbation of asthma who was requiring oxygen to keep oxygen saturations greater than 92%. He was afebrile. He had a normal white count. CBC and CMP were grossly within normal limits. Chest x-ray with no acute cardiopulmonary disease. In the ED, the patient received 1g ceftriaxone, 500 mg azithromycin p.o., 2 DuoNeb treatments, and 8 mg IM Decadron. Flu test negative on admission. Today, patient says is still wheezing, but is satting at 92% on room air. Plan: -Titrate oxygen to keep sats greater than 92% -DuoNeb treatments every 4 hours -Albuterol treatments every 2 hours as needed -Zithromax 250 mg p.o. daily to continue, Rocephin 1g IV daily to continue ( start date 11/16) -Prednisone 40 mg daily initiated 11/14 @ 9am -Continue Flovent -Cough drops PRN -For likely URI-related muscle aches will alternate acetaminophen and ibuprofen PRN (2) Nutrition, metabolism, and development symptoms Code(s): R63.8 - Other symptoms and signs concerning food and fluid intake Status: Acute Plan: Fluids: Patient tolerating p.o. intake Electrolytes: Monitor and replete as needed Nutrition: Regular diet (3) DVT prophylaxis Status: Acute Plan: Patient is ambulatory, chronic smoker. Counseled on smoking cessation. Patient is at [facility], history of alcoholism. Bilateral SCDs on admission. <Patt Quesada - 11/15/18 11:01> - Assessment and Plan Discharge Planning: I anticipate the patient will require 1 more day of close monitoring as he did require oxygen overnight. He will likely be discharged tomorrow. <Patt Quesada - 11/15/18 11:06> - Attending Attestation This patient was seen and evaluated with the resident physician. I agree with the plan of care as discussed with me and documented in the resident note. Jasiel Churchill MD <Jasiel Churchill - 11/15/18 13:42> <Patt Quesada - Last Filed: 11/15/18 11:01> (1) Acute asthma exacerbation Qualifiers: Asthma severity: severe Asthma persistence: persistent Qualified Code(s): J45.51 - Severe persistent asthma with (acute) exacerbation <Jasiel Churchill - Last Filed: 11/15/18 13:42> (1) Acute asthma exacerbation Qualifiers: Asthma severity: severe Asthma persistence: persistent Qualified Code(s): J45.51 - Severe persistent asthma with (acute) exacerbation <Patt Quesada - Last Filed: 11/15/18 11:01> (1) Acute asthma exacerbation Qualifiers: Asthma severity: severe Asthma persistence: persistent Qualified Code(s): J45.51 - Severe persistent asthma with (acute) exacerbation <Jasiel Churchill - Last Filed: 11/15/18 13:42> (1) Acute asthma exacerbation Qualifiers: Asthma severity: severe Asthma persistence: persistent Qualified Code(s): J45.51 - Severe persistent asthma with (acute) exacerbation
[2018-11-15] MEDS ORDERED: Polyethylene Glycol 3350 17 GM Packet PO ONE (08:51)
[2018-11-16 08:03] LABS: Baso % (Auto) 0.4 % (0.0-2.0); Eos # (Auto) 0.2 th/mm3 (0.0-0.4); Eos % (Auto) 1.9 % (0.0-4.0); Hematocrit 43.2 % (39.0-51.0); Hemoglobin 14.8 gm/dL (13.0-17.0); Lymph # (Auto) 3.2 th/mm3 (1.0-4.8); Lymph % (Auto) 33.3 % (9.0-44.0); Mean Corpuscular HGB Conc 34.3 % (32.0-36.0); Mean Corpuscular Hemoglobin 29.9 pg (27.0-34.0); Mean Corpuscular Volume 87.2 fL (80.0-100.0); Mean Platelet Volume 6.4 fL (7.0-11.0); Mono # (Auto) 0.8 th/mm3 (0.0-0.9); Mono % (Auto) 8.4 % (0.0-8.0); Neut # (Auto) 5.3 th/mm3 (1.8-7.7); Platelet Count 314 th/mm3 (150-450); Red Blood Count 4.95 mil/mm3 (4.50-5.90); Red Cell Distribution Width 13.2 % (11.6-17.2); White Blood Count 9.5 th/mm3 (4.0-11.0)
[2018-11-16 08:25] LABS: Anion Gap 7 meq/L (5-15); Blood Urea Nitrogen 9 mg/dL (7-18); Calcium 8.4 mg/dL (8.5-10.1); Carbon Dioxide 28.5 meq/L (21.0-32.0); Chloride 109 meq/L (98-107); Glomerular Filtration Rate Greater Than 89 mL/min (>89); Glucose,Random 85 mg/dL (74-106); Potassium 3.9 meq/L (3.5-5.1); Sodium 144 meq/L (136-145)
[2018-11-16] MEDS: Azithromycin 250 MG Tablet PO SCH (08:27)
[2018-11-16] MEDS: predniSONE 20 MG Tablet PO SCH (08:27)
--- NOTE | 2018-11-16 08:58 | P.PNFP ---
Subjective Interval history: Patient was seen and evaluated this morning. He feels well this morning; he is comfortable to go home. While he still experiences minimal shortness of breath, he is no longer requiring oxygen. He denies chest pain, nausea, vomiting, diarrhea and constipation. Patient cannot financially afford medications at time of discharge. Case management asked to assist. All questions were answered. <Radha MccainJamilah - 11/16/18 09:35> Results - Labs Result diagrams: 11/16/18 06:59 11/16/18 06:59 <Lauro Baldwin - 11/16/18 16:03> Abnormal lab results 11/16/18 11/16/18 Range/Units 06:59 06:59 MPV 6.4 L (7.0-11.0) fL [place] % (Auto) 8.4 H (0.0-8.0) % Chloride 109 H (98-107) meq/L Calcium 8.4 L (8.5-10.1) mg/dL Short CBC 11/16/18 Range/Units 06:59 WBC 9.5 (4.0-11.0) th/mm3 Hgb 14.8 (13.0-17.0) gm/dL Hct 43.2 (39.0-51.0) % Plt Count 314 (150-450) th/mm3 [facility] 11/16/18 06:59 Sodium 144 Potassium 3.9 Chloride 109 H Carbon Dioxide 28.5 BUN 9 Creatinine 0.70 Calcium 8.4 L <Lauro Baldwin R - 11/16/18 16:03> Abnormal lab results 11/16/18 11/16/18 Range/Units 06:59 06:59 MPV 6.4 L (7.0-11.0) fL [place] % (Auto) 8.4 H (0.0-8.0) % Chloride 109 H (98-107) meq/L Calcium 8.4 L (8.5-10.1) mg/dL Short CBC 11/16/18 Range/Units 06:59 WBC 9.5 (4.0-11.0) th/mm3 Hgb 14.8 (13.0-17.0) gm/dL Hct 43.2 (39.0-51.0) % Plt Count 314 (150-450) th/mm3 BMP 11/16/18 06:59 Sodium 144 Potassium 3.9 Chloride 109 H Carbon Dioxide 28.5 BUN 9 Creatinine 0.70 Calcium 8.4 L <Radha MccainMalcomJamilah - 11/16/18 08:58> Physical Exam Vital signs: Vital Signs 11/15/18 16:33 11/15/18 20:00 11/15/18 21:10 Temperature 98.0 F Pulse Rate 97 H 80 80 Respiratory Rate 17 18 16 Blood Pressure 133/70 Pulse Oximetry 94 L 11/16/18 00:00 11/16/18 01:13 11/16/18 03:12 Temperature 98.3 F Pulse Rate 81 65 77 Respiratory Rate 19 14 16 Blood Pressure 139/69 Pulse Oximetry 93 L 11/16/18 08:00 11/16/18 11:50 Temperature 97.6 F Pulse Rate 87 78 Respiratory Rate 18 16 Blood Pressure 115/66 Pulse Oximetry 95 Intake & Output 11/15/18 11/16/18 11/16/18 18:59 06:59 18:59 Intake Total 100 / 100 Balance 100 / 100 Weight 92.2 kg Intake: IV 100 / 100 Rocephin Inj 1,000 MG In NS Inj 100 / 100 100 ML @ 200 mls/hr IV.SIG Q24H [facility] Rx#:[id number] Other: # Voids 3 Date of Last Bowel Movement 11/13/18 11/15/18 <Lauro Baldwin - 11/16/18 16:03> Vital Signs 11/15/18 11:43 11/15/18 12:00 11/15/18 15:28 Temperature 97.7 F 98.2 F Pulse Rate 91 H 85 88 Respiratory Rate 19 17 16 Blood Pressure 130/67 145/71 H Pulse Oximetry 93 L 94 L 92 L 11/15/18 16:33 11/15/18 20:00 11/15/18 21:10 Temperature 98.0 F Pulse Rate 97 H 80 80 Respiratory Rate 17 18 16 Blood Pressure 133/70 Pulse Oximetry 94 L 11/16/18 00:00 11/16/18 01:13 11/16/18 03:12 Temperature 98.3 F Pulse Rate 81 65 77 Respiratory Rate 19 14 16 Blood Pressure 139/69 Pulse Oximetry 93 L Intake & Output 11/15/18 11/16/18 11/16/18 18:59 06:59 18:59 Intake Total 100 / 100 Balance 100 / 100 Weight 92.2 kg Intake: IV 100 / 100 Rocephin Inj 1,000 MG In NS Inj 100 / 100 100 ML @ 200 mls/hr IV.SIG Q24H [facility] Rx#:[id number] Other: # Voids 3 Date of Last Bowel Movement 11/13/18 11/15/18 <Jamilah Gonzalez - 11/16/18 08:58> Narrative: GENERAL: male resting comfortably in hospital bed in no acute distress. SKIN: Cool and dry. HEAD: Atraumatic. Normocephalic. EYES: Pupils equal round and reactive. Extraocular motions intact. ENT: Nose without bleeding, purulent drainage. Airway patent. CARDIOVASCULAR: Regular rate and rhythm without murmurs, gallops, or rubs. RESPIRATORY: Improved. Minimal expiratory wheezes noted. GASTROINTESTINAL: Abdomen soft, non-tender. MUSCULOSKELETAL: Extremities without clubbing, cyanosis, or edema. No joint tenderness or effusion noted. No calf tenderness. NEUROLOGICAL: Awake and alert. Normal speech. <Jamilah Gonzalez - 11/16/18 09:35> Assessment and Plan - Assessment (1) Acute asthma exacerbation Code(s): J45.901 - Unspecified asthma with (acute) exacerbation Status: Resolved (2) Nutrition, metabolism, and development symptoms Code(s): R63.8 - Other symptoms and signs concerning food and fluid intake Status: Acute (3) DVT prophylaxis Status: Acute <Lauro Baldwin - 11/16/18 16:03> (1) Acute asthma exacerbation Code(s): J45.901 - Unspecified asthma with (acute) exacerbation Status: Resolved Plan: Resolving. Patient no longer requires oxygen. Experiences minimal shortness of breath. Likely discharge today if medication can be provided to patient prior to discharge. Continue DuoNeb treatments q4hr. Continue Albuterol treatments q2hr PRN shortness of breath. Continue Zithromax 250 mg PO daily. Continue Prednisone 40 mg daily. Continue FloVent. Hospital Course: On admission - 43-year-old male with an acute exacerbation of asthma who was requiring oxygen to keep oxygen saturations greater than 92%. He was afebrile. He had a normal white count. CBC and CMP were grossly within normal limits. Chest x-ray with no acute cardiopulmonary disease. In the ED, the patient received 1g ceftriaxone, 500 mg azithromycin p.o., 2 DuoNeb treatments, and 8 mg IM Decadron. Flu test negative on admission. (2) Nutrition, metabolism, and development symptoms Code(s): R63.8 - Other symptoms and signs concerning food and fluid intake Status: Acute Plan: Fluids: Tolerate PO. Nutrition: Regular diet. Electrolytes: Monitor and replete as necessary. (3) DVT prophylaxis Status: Acute Plan: Patient is ambulatory, chronic smoker. Counseled on smoking cessation. Patient is at [facility], history of alcoholism. Bilateral SCDs on admission. <Jamilah Gonzalez - 11/16/18 09:35> - Assessment and Plan Discharge Planning: Likely today if patient can be provided with medications upon discharge. <Jamilah Gonzalez - 11/16/18 09:37> - Attending Attestation This patient was seen and examined. The assessment and plan was discussed with the resident physician and I am in agreement with continued medical care as documented in this encounter. LAURO BALDWIN MD <Lauro Baldwin - 11/16/18 16:03> <Jamilah Gonzalez - Last Filed: 11/16/18 09:35> (1) Acute asthma exacerbation Qualifiers: Asthma severity: severe Asthma persistence: persistent Qualified Code(s): J45.51 - Severe persistent asthma with (acute) exacerbation <Lauro Baldwin - Last Filed: 11/16/18 16:03> (1) Acute asthma exacerbation Qualifiers: Asthma severity: severe Asthma persistence: persistent Qualified Code(s): J45.51 - Severe persistent asthma with (acute) exacerbation <Jamilah Gonzalez - Last Filed: 11/16/18 09:35> (1) Acute asthma exacerbation Qualifiers: Asthma severity: severe Asthma persistence: persistent Qualified Code(s): J45.51 - Severe persistent asthma with (acute) exacerbation <Lauro Baldwin - Last Filed: 11/16/18 16:03> (1) Acute asthma exacerbation Qualifiers: Asthma severity: severe Asthma persistence: persistent Qualified Code(s): J45.51 - Severe persistent asthma with (acute) exacerbation
[2018-11-16 09:42] VITALS: BP 115/66; TEMP 97.6; O2SAT 95
[2018-11-16 11:51] VITALS: PULSE 78; RESP 16
== END 2018-11-16 13:29 | disposition home or self-care (01) ==
LOC: NEPC 08:08 → NEDA 10:51 → INTOOBSV 10:51 → NEDA 13:10 → N07 13:15
PROVIDERS: ADMIT Family Medicine; ATTEND Family Medicine
DX: J45.51 Severe persistent asthma with (acute) exacerbation; R63.8 Other symptoms and signs concerning food and fluid intake; R50.9 Fever, unspecified; F17.200 Nicotine dependence, unspecified, uncomplicated; R11.2 Nausea with vomiting, unspecified; R05 Cough; R06.02 Shortness of breath
CPT/HCPCS: 71010; 71045; 80048; 80053; 82040; 85025; 87275; 87276; 87804; 90765; 90772; 90776; 90782; 94150; 94640; 94664; 94665; 96365; 96372; 96376; 99285; G0378; J0696; J1100; J7506; J7512